=== PATIENT | female | born 1990 | race Hispanic/Latino ===

== ENCOUNTER 2017-03-29 19:44 | Emergency (ER) | payer BC, MEDICAID ==
[2017-03-29 22:16] LABS: APPEARANCE,URINE Clear (CLEAR); BILIRUBIN,URINE Negative (NEGATIVE); COLOR,URINE Yellow (YELLOW); GLUCOSE, URINE (UA) Negative (NEGATIVE); KETONES,URINE 40 mg/dL (NEGATIVE); LEUKOCYTE ESTERASE ,URINE Negative (NEGATIVE); NITRATE,URINE Negative (NEGATIVE); OCCULT BLOOD,URINE Negative (NEGATIVE); PH,URINE 5.5 (5.0-8.0); PROTEIN,URINE Negative (NEGATIVE); UROBILINOGEN,URINE 0.2 mg/dL (0.2-1.0)
[2017-03-29] MEDS ORDERED: ACETAMINOPHEN 325 MG TAB ONE (22:32)
[2017-03-29] MEDS ORDERED: CYCLOBENZAPRINE HCL 10 MG TABLET ONE (22:33)
== END 2017-03-29 23:12 | disposition home or self-care (01) ==
LOC: EDH 19:44
DX: M54.5 Low back pain (principal)
CPT/HCPCS: 81003

== ENCOUNTER 2017-08-17 05:46 | Observation (INO) | payer BC, MEDICAID ==
[~2017-08-17] VITALS: Ht 157.5 cm; Wt 82.1 kg
[2017-08-17 06:53] VITALS: BP 120/72
[2017-08-17 07:03] LABS: APPEARANCE,URINE CLEAR (CLEAR); BILIRUBIN,URINE NEGATIVE (NEGATIVE); COLOR,URINE YELLOW (YELLOW); GLUCOSE, URINE (UA) NEGATIVE (NEGATIVE); KETONES,URINE NEGATIVE (NEGATIVE); LEUKOCYTE ESTERASE ,URINE NEGATIVE (NEGATIVE); NITRATE,URINE NEGATIVE (NEGATIVE); OCCULT BLOOD,URINE NEGATIVE (NEGATIVE); PH,URINE 6.5 (5.0-8.0); PROTEIN,URINE NEGATIVE (NEGATIVE)
[2017-08-17] MEDS ORDERED: LACTATED RINGERS 1000ML IV SCH (07:30)
== END 2017-08-17 10:26 | disposition home or self-care (01) ==
LOC: EDH 05:46 → LDH 05:47
DX: O26.893 Other specified pregnancy related conditions, third trimester (principal); R05 Cough; R10.2 Pelvic and perineal pain; Z3A.31 31 weeks gestation of pregnancy; Z79.899 Other long term (current) drug therapy
CPT/HCPCS: 81003; 99285; G0378 ×5; J7120; 96360; 96361

== ENCOUNTER 2017-08-25 08:31 | Observation (INO) | payer BC, MEDICAID ==
[~2017-08-25] VITALS: Ht 154.9 cm; Wt 81.6 kg
[2017-08-25 11:22] LABS: BASOPHILS % (AUTO) 0.3 % (0.0-5.0); EOSINOPHILS % (AUTO) 0.7 % (0.0-8.0); HEMATOCRIT 34.7 % (36-48); LYMPHOCYTES % (AUTO) 17.4 % (21.0-51.0); MEAN CORPUSCULAR HEMOGLOBIN 28.4 pg (27.0-33.0); MEAN CORPUSCULAR VOLUME 81.2 fL (79-99); MONOCYTES % (AUTO) 4.5 % (3.0-13.0); NEUTROPHILS % (AUTO) 77.1 % (40.0-77.0); PLATELET COUNT (AUTO) 133 K/uL (130-400); RED BLOOD CELL COUNT(AUTO) 4.28 MIL/uL (4.00-5.50); RED CELL DISTRIBUTION WIDTH 14.1 % (11.0-15.5); WHITE BLOOD COUNT (AUTO) 10.4 K/uL (4.8-10.8)
[2017-08-25] MEDS ORDERED: ACETAMINOPHEN EXTRA STRENGTH 500 MG TABLET PO SCH (11:45)
== END 2017-08-25 12:04 | disposition home or self-care (01) ==
LOC: EDH 08:31 → LDH 08:32
DX: O36.8130 Decreased fetal movements, third trimester, not applicable or unspecified (principal); Z3A.32 32 weeks gestation of pregnancy
CPT/HCPCS: 36415; 82948; 85025; 99285; G0378 ×4

== ENCOUNTER 2022-01-24 22:44 | Inpatient (IN) | payer BC, MEDICAID, OTHER ==
[~2022-01-24] VITALS: Ht 154.9 cm; Wt 88.5 kg
[2022-01-24] MEDS ORDERED: MAG/ALUM/SIMETH 30 ML UDCUP PO ONE (23:00)
[2022-01-24] MEDS ORDERED: ONDANSETRON 4MG INJ IVP ONE (23:00)
[2022-01-24] MEDS ORDERED: 0.9%NACL 1000ML 1,000 ML IV ONE (23:00)
[2022-01-24] MEDS ORDERED: DICYCLOMINE HCL 10 MG/5 ML ML PO ONE (23:00)
[2022-01-24] MEDS ORDERED: MORPHINE 2 MG SYG IVP ONE (23:00)
[2022-01-24] MEDS ORDERED: FAMOTIDINE 20MG VIAL IV ONE (23:00)
[2022-01-24] MEDS ORDERED: LIDOCAINE HCL 2% VISCOUS 15 ML UDCUP PO ONE (23:00)
[2022-01-24 23:17] LABS: BASOPHILS % (AUTO) 0.2 % (0.0-5.0); HEMATOCRIT 41.1 % (36-48); LYMPHOCYTES % (AUTO) 9.4 % (21.0-51.0); MEAN CORPUSCULAR HEMOGLOBIN 26.8 pg (27.0-33.0); MEAN CORPUSCULAR HGB CONC 33.1 g/dL (32.0-36.0); MEAN CORPUSCULAR VOLUME 81.1 fL (79-99); MONOCYTES % (AUTO) 3.1 % (3.0-13.0); NEUTROPHILS % (AUTO) 84.9 % (40.0-77.0); PLATELET COUNT (AUTO) 305 K/uL (130-400); RED BLOOD CELL COUNT(AUTO) 5.07 MIL/uL (4.00-5.50); RED CELL DISTRIBUTION WIDTH 12.9 % (11.0-15.5); WHITE BLOOD COUNT (AUTO) 11.7 K/uL (4.8-10.8)
[2022-01-24 23:25] LABS: HCG,QUALITATIVE URINE NEGATIVE (NEGATIVE)
[2022-01-24 23:29] LABS: APPEARANCE,URINE CLOUDY (CLEAR); BILIRUBIN,URINE 1 mg/dL (NEGATIVE); COLOR,URINE YELLOW (YELLOW); GLUCOSE, URINE (UA) NEGATIVE (NEGATIVE); KETONES,URINE 10 mg/dL (NEGATIVE); LEUKOCYTE ESTERASE ,URINE NEGATIVE Leu/uL (NEGATIVE); NITRATE,URINE NEGATIVE (NEGATIVE); OCCULT BLOOD,URINE NEGATIVE (NEGATIVE); PROTEIN,URINE 30 mg/dL (NEGATIVE); UROBILINOGEN,URINE 12 mg/dL (0.2-1.0)
[2022-01-24 23:32] LABS: ALBUMIN 4.3 g/dL (3.5-5.0); CREATININE 0.8 mg/dL (0.5-1.5); POTASSIUM 3.3 mmol/L (3.5-5.1); TOTAL PROTEIN, SERUM 8.3 g/dL (6.0-8.3)
[2022-01-24 23:32] LABS: BACTERIA,URINE RARE /HPF (None Seen); MUCUS,URINE RARE LPF (None Seen); SQUAMOUS EPITHELIAL CELL,UR RARE /HPF (0-2); WBC,URINE 0-1 /HPF (0-1)
[2022-01-25] MEDS ORDERED: ZOSYN 3.375GM +NS 50ML IV ONE
[2022-01-25] MEDS ORDERED: KETOROLAC 30MG VIAL (30MG/ML) IVP ONE (00:30)
[2022-01-25] MEDS: LACTATED RINGERS 1000ML 1,000 ML IV SCH ×2 (00:52→13:19)
[2022-01-25] MEDS ORDERED: LIDOCAINE HCL-MPF 1% 2ML VIAL IV PRN (01:00)
[2022-01-25] MEDS ORDERED: LACTULOSE 20 GM/30 ML UDCUP PO PRN (01:00)
[2022-01-25] MEDS ORDERED: ACETAMINOPHEN 325 MG TAB PO PRN (01:00)
[2022-01-25] MEDS ORDERED: MAGNESIUM 2GM PREMIX 50ML 50 ML IV PRN (01:00)
[2022-01-25] MEDS: POTASSIUM CHLORIDE 10MEQ/100ML 100 ML IV PRN ×2 (01:14→03:40)
[2022-01-25] MEDS: ONDANSETRON 4MG INJ IV PRN ×2 (02:19→09:40)
[2022-01-25 03:50] VITALS: BP 98/57
[2022-01-25] MEDS: ZOSYN 3.375GM+NS 50ML 50 ML IV SCH ×3 (05:00→18:59)
[2022-01-25 07:50] VITALS: BP 129/78
[2022-01-25] MEDS: FAMOTIDINE 20MG VIAL IV SCH ×2 (09:33→21:15)
[2022-01-25] MEDS: ENOXAPARIN SODIUM 40 MG/0.4 ML SYRINGE SQ SCH (09:34)
[2022-01-25] MEDS: MORPHINE 2 MG SYG IV PRN (09:35)
[2022-01-25 12:00] VITALS: BP 133/88
[2022-01-25] MEDS: ACETAMINOPHEN 325 MG TAB PO PRN (13:29)
[2022-01-25 15:36] VITALS: BP 118/68
[2022-01-25] MEDS ORDERED: HYDROMORPHONE 0.5 MG SYG (0.5MG/0.5ML) IVP PRN (18:00)
[2022-01-25] MEDS ORDERED: KETOROLAC 15MG/ML VIAL (15MG/ML) IM PRN (18:00)
[2022-01-25] MEDS: KETOROLAC 15MG/ML VIAL (15MG/ML) IV PRN (19:36)
[2022-01-25 19:55] VITALS: BP 128/78
[2022-01-25 23:15] VITALS: BP 123/79
[2022-01-26] VITALS (14 sets, daily range): BP systolic 108–138; BP diastolic 61–95
[2022-01-26] MEDS: LACTATED RINGERS 1000ML 1,000 ML IV SCH ×3 (00:57→14:27)
[2022-01-26] MEDS: KETOROLAC 15MG/ML VIAL (15MG/ML) IV PRN (03:15)
[2022-01-26] MEDS: ZOSYN 3.375GM+NS 50ML 50 ML IV SCH ×3 (03:15→20:47)
[2022-01-26 07:14] LABS: INR 1.18 (0.85-1.15); PROTHROMBIN TIME 12.7 SEC (9.6-11.6)
[2022-01-26 07:15] LABS: PARTIAL THROMBOPLASTIN TIME 31.4 SEC (26.3-35.5)
[2022-01-26 07:42] LABS: HEMATOCRIT 33.3 % (36-48); MEAN CORPUSCULAR HEMOGLOBIN 26.7 pg (27.0-33.0); MEAN CORPUSCULAR HGB CONC 32.4 g/dL (32.0-36.0); MEAN CORPUSCULAR VOLUME 82.4 fL (79-99); RED BLOOD CELL COUNT(AUTO) 4.04 MIL/uL (4.00-5.50); RED CELL DISTRIBUTION WIDTH 13.2 % (11.0-15.5)
[2022-01-26 07:48] LABS: CREATININE 0.7 mg/dL (0.5-1.5); POTASSIUM 3.4 mmol/L (3.5-5.1)
[2022-01-26 07:58] LABS: ALBUMIN 2.9 g/dL (3.5-5.0); TOTAL PROTEIN, SERUM 6.4 g/dL (6.0-8.3)
[2022-01-26] MEDS: POTASSIUM CHLORIDE 10MEQ/100ML 100 ML IV PRN (08:18)
[2022-01-26] MEDS: FAMOTIDINE 20MG VIAL IV SCH ×2 (08:32→20:47)
[2022-01-26] MEDS: ENOXAPARIN SODIUM 40 MG/0.4 ML SYRINGE SQ SCH (09:00)
[2022-01-26] MEDS ORDERED: IOHEXOL-350 50ML VIAL IV ONE (09:14)
[2022-01-26 10:01] LABS: HEPATITIS B SURFACE ANTIGEN Non-Reactive (Nonreactive); HEPATITIS C ANTIBODY Non-Reactive (Nonreactive)
[2022-01-26 10:02] LABS: HEPATITIS A IGM ANTIBODY Non-Reactive (Nonreactive); HEPATITIS B CORE IGM ANTIBODY Non-Reactive (Negative)
[2022-01-26] MEDS ORDERED: MIDAZOLAM HCL 1 MG/ML 2ML VIAL ONE (12:01)
[2022-01-26] MEDS ORDERED: FENTANYL CITRATE PF 50 MCG/1 ML 2ML VIAL ONE (12:01)
[2022-01-26] MEDS ORDERED: PROPOFOL 10 MG/ML 20ML VIAL IV ONE (12:02)
[2022-01-26] MEDS ORDERED: GLUCAGON 1MG KIT 1 MG ML ONE (12:49)
[2022-01-26] MEDS ORDERED: NEOSTIGMINE 5MG/5ML SYR IV ONE (13:00)
[2022-01-26] MEDS: ONDANSETRON 4MG INJ IV PRN (13:26)
[2022-01-27] VITALS (20 sets, daily range): BP systolic 99–150; BP diastolic 56–94
[2022-01-27] MEDS: ZOSYN 3.375GM+NS 50ML 50 ML IV SCH ×3 (04:30→22:25)
[2022-01-27] MEDS: LACTATED RINGERS 1000ML 1,000 ML IV SCH ×3 (04:31→20:00)
[2022-01-27] MEDS: ONDANSETRON 4MG INJ IV PRN (06:50)
[2022-01-27] MEDS: MORPHINE 2 MG SYG IV PRN (06:54)
[2022-01-27 07:52] LABS: ALBUMIN 2.7 g/dL (3.5-5.0); CREATININE 0.6 mg/dL (0.5-1.5); POTASSIUM 3.5 mmol/L (3.5-5.1); TOTAL PROTEIN, SERUM 6.3 g/dL (6.0-8.3)
[2022-01-27] MEDS: ENOXAPARIN SODIUM 40 MG/0.4 ML SYRINGE SQ SCH (08:03)
[2022-01-27] MEDS: FAMOTIDINE 20MG VIAL IV SCH ×2 (08:12→21:00)
[2022-01-27] MEDS ORDERED: PROMETHAZINE HCL 25 MG/ML 1ML AMPULE IM PRN ×3 (10:00→22:00)
[2022-01-27] MEDS ORDERED: ROPIVACAINE 0.5% 5MG/ML 30ML IJ ONE (16:22)
[2022-01-27] MEDS ORDERED: LIDOCAINE HCL 1% 20 ML VIAL ONE (16:22)
[2022-01-27] MEDS ORDERED: MORPHINE PF 100MG/10ML AMP IV ONE (16:23)
[2022-01-27] MEDS ORDERED: CEFAZOLIN SODIUM 1 GM VIAL ONE (17:43)
[2022-01-27] MEDS ORDERED: ONDANSETRON 4MG INJ ONE (18:11)
[2022-01-27] MEDS ORDERED: PROPOFOL 10 MG/ML 20ML VIAL IV ONE (18:11)
[2022-01-27] MEDS ORDERED: MIDAZOLAM HCL 1 MG/ML 2ML VIAL ONE (18:11)
[2022-01-27] MEDS ORDERED: ROCURONIUM 10MG/1ML SYR 10 MG/ML ML ONE (18:12)
[2022-01-27] MEDS ORDERED: FENTANYL CITRATE PF 50 MCG/1 ML 5ML AMP IV ONE (18:12)
[2022-01-27] MEDS ORDERED: EPHEDRINE SULFATE 50 MG/ML AMPULE ONE (19:56)
[2022-01-27] MEDS ORDERED: GLYCOPYRROLATE 1 MG/5 ML SYRINGE ONE (20:23)
[2022-01-27] MEDS ORDERED: NEOSTIGMINE 5MG/5ML SYR IV ONE (20:23)
[2022-01-27] MEDS ORDERED: KETOROLAC 30MG VIAL (30MG/ML) ONE (20:26)
[2022-01-27] MEDS ORDERED: FENTANYL CITRATE PF 50 MCG/1 ML 2ML VIAL ONE (20:27)
[2022-01-27] MEDS ORDERED: MEPERIDINE-PF 25 MG/ML SYG ONE (20:51)
[2022-01-27] MEDS ORDERED: ACETAMINOPHEN WITH CODEINE 1 TAB TAB PO PRN (22:00)
[2022-01-27] MEDS ORDERED: BISACODYL 10 MG SUPP.RECT RC PRN (22:00)
[2022-01-27] MEDS ORDERED: MEPERIDINE-PF 75 MG/ML SYG IM PRN (22:00)
[2022-01-27] MEDS: IBUPROFEN 600 MG TABLET PO PRN (22:35)
[2022-01-28] VITALS (7 sets, daily range): BP systolic 111–135; BP diastolic 67–84
[2022-01-28] MEDS: ONDANSETRON 4MG INJ IV PRN ×2 (00:05→08:44)
[2022-01-28 01:53] LABS: HEMATOCRIT 34.5 % (36-48)
[2022-01-28] MEDS: ACETAMINOPHEN 325 MG TAB PO PRN ×3 (03:13→23:37)
[2022-01-28 05:49] LABS: BASOPHILS % (AUTO) 0.2 % (0.0-5.0); EOSINOPHILS % (AUTO) 0.1 % (0.0-8.0); HEMATOCRIT 33.6 % (36-48); LYMPHOCYTES % (AUTO) 8.5 % (21.0-51.0); MEAN CORPUSCULAR HEMOGLOBIN 26.9 pg (27.0-33.0); MEAN CORPUSCULAR HGB CONC 33.3 g/dL (32.0-36.0); MEAN CORPUSCULAR VOLUME 80.8 fL (79-99); MONOCYTES % (AUTO) 3.7 % (3.0-13.0); NEUTROPHILS % (AUTO) 86.4 % (40.0-77.0); PLATELET COUNT (AUTO) 291 K/uL (130-400); RED BLOOD CELL COUNT(AUTO) 4.16 MIL/uL (4.00-5.50); RED CELL DISTRIBUTION WIDTH 13.4 % (11.0-15.5); WHITE BLOOD COUNT (AUTO) 9.4 K/uL (4.8-10.8)
[2022-01-28] MEDS: IBUPROFEN 600 MG TABLET PO PRN ×2 (06:27→16:15)
[2022-01-28] MEDS: ZOSYN 3.375GM+NS 50ML 50 ML IV SCH ×3 (07:53→23:18)
[2022-01-28] MEDS: FAMOTIDINE 20MG VIAL IV SCH ×2 (08:42→20:46)
[2022-01-28] MEDS: DOCUSATE SODIUM 100 MG CAP PO PRN ×2 (10:02→20:46)
[2022-01-28] MEDS: SIMETHICONE 80 MG TAB.CHEW PO PRN ×2 (10:02→18:54)
[2022-01-28] MEDS: LACTATED RINGERS 1000ML 1,000 ML IV SCH ×2 (19:56→19:57)
[2022-01-29 03:04] VITALS: BP 123/71
[2022-01-29 05:09] LABS: BASOPHILS % (AUTO) 0.8 % (0.0-5.0); EOSINOPHILS % (AUTO) 1.8 % (0.0-8.0); HEMATOCRIT 33.2 % (36-48); LYMPHOCYTES % (AUTO) 22.5 % (21.0-51.0); MEAN CORPUSCULAR HEMOGLOBIN 26.9 pg (27.0-33.0); MEAN CORPUSCULAR HGB CONC 33.4 g/dL (32.0-36.0); MEAN CORPUSCULAR VOLUME 80.4 fL (79-99); MONOCYTES % (AUTO) 7.8 % (3.0-13.0); NEUTROPHILS % (AUTO) 64.3 % (40.0-77.0); PLATELET COUNT (AUTO) 273 K/uL (130-400); RED BLOOD CELL COUNT(AUTO) 4.13 MIL/uL (4.00-5.50); RED CELL DISTRIBUTION WIDTH 13.6 % (11.0-15.5); WHITE BLOOD COUNT (AUTO) 7.1 K/uL (4.8-10.8)
[2022-01-29] MEDS: KETOROLAC 15MG/ML VIAL (15MG/ML) IV PRN (05:18)
[2022-01-29 05:36] LABS: ALBUMIN 2.9 g/dL (3.5-5.0); CREATININE 0.6 mg/dL (0.5-1.5); MAGNESIUM 1.9 mg/dL (1.80-2.40); POTASSIUM 3.2 mmol/L (3.5-5.1); TOTAL PROTEIN, SERUM 6.9 g/dL (6.0-8.3)
[2022-01-29] MEDS ORDERED: KCL 20 MEQ ERTAB PO SCH (07:00)
[2022-01-29] MEDS: ZOSYN 3.375GM+NS 50ML 50 ML IV SCH (07:01)
[2022-01-29] MEDS ORDERED: ACET-2079 PO (07:05)
[2022-01-29] MEDS ORDERED: DOCU-116 PO (07:05)
[2022-01-29] MEDS ORDERED: CIPR-278 PO (07:05)
[2022-01-29 07:30] VITALS: BP 121/80
[2022-01-29] MEDS: DOCUSATE SODIUM 100 MG CAP PO PRN (08:39)
[2022-01-29] MEDS: SIMETHICONE 80 MG TAB.CHEW PO PRN (08:39)
[2022-01-29] MEDS: FAMOTIDINE 20MG VIAL IV SCH (08:39)
== END 2022-01-29 10:50 | disposition home or self-care (01) | DRG 742 ==
LOC: EDH 22:44 → EDHIP 22:45 → WSH 01-25 03:35
PROVIDERS: ADMIT Hospitalist; ATTEND Hospitalist
PROC: 0FPB8DZ Removal of Intraluminal Device from Hepatobiliary Duct, Via Natural or Artificial Opening Endoscopic (ICD-10-PCS; 2022-01-26)
PROC: 0FC98ZZ Extirpation of Matter from Common Bile Duct, Via Natural or Artificial Opening Endoscopic (ICD-10-PCS; 2022-01-26)
PROC: BF131ZZ Fluoroscopy of Gallbladder and Bile Ducts using Low Osmolar Contrast (ICD-10-PCS; 2022-01-26)
PROC: 0UT50ZZ Resection of Right Fallopian Tube, Open Approach (ICD-10-PCS; principal; 2022-01-27 19:15)
PROC: 0UT00ZZ Resection of Right Ovary, Open Approach (ICD-10-PCS; 2022-01-27 19:15)
DX: D27.0 Benign neoplasm of right ovary (principal); K80.31 Calculus of bile duct with cholangitis, unspecified, with obstruction; Z68.36 Body mass index [BMI] 36.0-36.9, adult; R19.09 Other intra-abdominal and pelvic swelling, mass and lump; Z20.822 Contact with and (suspected) exposure to COVID-19; E87.6 Hypokalemia; E66.9 Obesity, unspecified; K76.0 Fatty (change of) liver, not elsewhere classified; Z83.3 Family history of diabetes mellitus; Z90.49 Acquired absence of other specified parts of digestive tract
CPT/HCPCS: 36415; 43262; 43264; 43275; 74176; 74328; 74330; 76700; 80053; 80074; 81001; 81025; 83605; 83690; 83735; 84132; 85014; 85018; 85025; 85027; 85610; 85730; 87324; 87635; A4344; A4606; C1769; C1773; G0378; J0690; J1610; J1650; J1885; J2175; J2250; J2274; J2405; J2543; J2550; J2704; J2710; J2795; J3010; J3475; J3490; J7030; J7120; Q9967